=== PATIENT | female | born 1965 | race Two or more races ===

== ENCOUNTER 2020-07-30 08:00 | Outpatient (CLI) | payer OTHER | END 2020-07-30 08:30 | disposition home or self-care (01) | LOC: PPH VACUNA 08:00 | DX: Z23 Encounter for immunization (principal) ==

== ENCOUNTER 2021-02-25 14:35 | Outpatient (CLI) | payer OTHER | END 2021-02-25 14:45 | disposition home or self-care (01) | LOC: PPH VACUNA 14:35 | PROVIDERS: ATTEND Emergency Medicine Pediatric Emergency Medicine | DX: Z23 Encounter for immunization (principal) ==

== ENCOUNTER 2022-12-16 12:34 | Outpatient (CLI) | payer OTHER | END 2022-12-16 12:43 | disposition home or self-care (01) | LOC: MAMO-SONO 12:34 | PROVIDERS: ATTEND Radiology Diagnostic Radiology | DX: Z12.31 Encounter for screening mammogram for malignant neoplasm of breast (principal) ==